=== PATIENT | female | born 1955 | race Hispanic/Latino ===

== ENCOUNTER 2017-03-01 09:49 | Day surgery (SDC) | payer MEDICAID ==
[2017-02-27 13:53] VITALS: BMI 31.9
[2017-03-01] MEDS ORDERED: Lactated Ringer's 1,000 ML IV ONE ×2 (10:08)
[2017-03-01] MEDS ORDERED: Propofol 10 mg/ml Inj (20 ML) ONE (11:24)
[2017-03-01] MEDS ORDERED: Midazolam 2 MG/2 ML VIAL ONE (11:24)
[2017-03-01] MEDS: HYDROmorphone 0.5 mg/0.5 ml ISec IVP PRN ×2 (12:40→13:00)
--- NOTE | 2017-03-01 13:20 | PCM.SURG1 ---
Surgeon's Initial Post Op Note - Surgeon's Notes Surgeon: Kaylyn Barcenas MD Bounty Hunter: none Type of Anesthesia: General LMA Pre-Operative Diagnosis: Postmenopausal bleeding Operative Findings: 8 week sizes uteurs, bilateral ostia visulzed, large polypoid mass attacted from fundus to cervical os, multiple polpoid white fluffy endometrium noted, vascualr fundus, cervical polypoid tissue Post-Operative Diagnosis: same as above, endometrial polyp, cerivcal polyp Operation Performed: Operative hysteroscopy, fractional dilatoin and currettage , endometrial mass resection , cervical polypectomy Specimen/Specimens Removed: endocericla currttings, endometrial curretings, endometrial mass, cervixl polyp Estimated Blood Loss: EBL {In ML}: 10 Blood Products Given: N/A Drains Used: No Drains Post-Op Condition: Good Date of Surgery/Procedure: 03/01/17 Time of Surgery/Procedure: 11:00
[2017-03-01] MEDS ORDERED: Lactated Ringer's 500 ML IV ONE (15:27)
[2017-03-01 16:02] VITALS: BP 107/69; PULSE 57; RESP 15; TEMP 97.1; O2SAT 97
--- NOTE | 2017-03-01 22:34 | OP ---
PROCEDURE DATE: 03/01/2017 SURGEON: Dr. Kaylyn Barcenas. ENDBANDER: None. TYPE OF ANESTHESIA: General LMA. PREOPERATIVE DIAGNOSIS: Postmenopausal bleeding. OPERATIVE FINDINGS: An 8 weeks' sized uterus, bilateral ostia visualized. A large polypoid mass att ached from fundus to cervical os. Multiple polypoid white fluffy endometrium noted throughout vascul ar, fundus, cervical polypoid tissue. POSTOPERATIVE DIAGNOSIS: Postmenopausal bleeding, endometrial polyp, cervical polyp. OPERATION PERFORMED: Operative hysteroscopy, fractional dilation and curettage, endometrial mass res ection suspicious for endometrial polyp, and cervical polypectomy. SPECIMEN REMOVED: Endocervical curettings, endometrial polyp curettings, endometrial mass, cervical polyp. ESTIMATED BLOOD LOSS: 10 mL. BLOOD PRODUCTS: None. COMPLICATIONS: None. DESCRIPTION OF PROCEDURE: The patient was taken to the operating room where she was given general an esthesia. Once this was found be adequate, she was positioned on the operating table in dorsal supin e position with legs supported using stirrups. The patient was prepped and draped in the usual henrik l sterile fashion. Timeout was done, confirmed correct patient and correct procedure. Bimanual exam was performed with above-mentioned findings. Red rubber catheter was inserted in the urethra to jane in the bladder. Following this, a Walker retractor was placed in the anterior, posterior fornix of the vagina and the cervix was adequately visualized. A single tooth tenaculum was placed in the anterio r lip of the cervix and there was a polypoid tissue noted to be at the cervix at 6 o'clock, less than 0.5 cm. The endocervical curettings were obtained and sent to pathology on [facility] with a Kristan alves. The uterus was then sounded to 7 cm and the cervix was sequentially dilated to allow for intro duction of the hysteroscope. There was some resistance noted. The hysteroscope was then introduced under direct visualization using normal saline as the distention media. There was a polypoid large m ass attached from the fundus all the way to the cervical os protruding. There were also multiple lashaun ypoid tissue noted throughout the cavity. The MyoSure device was then inserted under direct visualiz ation and the mass was carefully resected, in addition to the polypoid tissue under direct visualizat ion. There was good removal of the tissue. Following this, a gentle curettage was done with a curet te 360 degrees until a gritty texture was noted. Following this, the cervical polyp was then removed using a ring forcep. There was good hemostasis noted. The single tooth tenaculum was removed from the anterior lip of the cervix with good hemostasis noted. All instruments were removed. At the end of the procedure, all needle, sponge, and instrument counts were noted to be correct x 2. The patient tolerated the procedure well and was transferred to the recovery room in stable condition . Kaylyn Barcenas MD cc: [id number] TT: 03/01/2017 22:33:59 dn
== END 2017-03-01 16:31 | disposition home or self-care (01) ==
LOC: C.SDS 09:49
PROVIDERS: ATTEND Obstetrics & Gynecology
DX: N84.1 Polyp of cervix uteri (principal); N95.0 Postmenopausal bleeding; N84.0 Polyp of corpus uteri
CPT/HCPCS: 58558; 84233; 88305; J1100; J1170; J1885; J2250; J2405; J2704; J2765; J3010; J7120